=== PATIENT | male | born 1930 | race Caucasian/White ===

== ENCOUNTER 2017-06-20 14:49 | Inpatient (IN) | payer OTHER ==
[~2017-06-20] VITALS: Ht 175.3 cm; Wt 98.4 kg
--- NOTE | ~2017-06-20 | HC ---
[facility] [place] [address] CONSULTATION Name: ROBERT BOSCH Room #: 419-P ADM IN M.R.#: [id number] Admission: 06/20/17 Attend Phys: Levar Villarreal Discharge: Date of : 30 Report #: [id number] THIS REPORT FOR: //name// CC: Levar Paulino DATE OF SERVICE: 06/21/2017 HISTORY OF PRESENT ILLNESS: This gentleman was admitted because of concerns about hematuria. Specifically, he was having bloody urine in his brief. So, he was transferred from [facility] and he had been admitted there after concerns that he was trying to poison himself. He has had significant adjustment issues in the transition to the assisted living level of care. He minimizes some of this now and seems to endorse that he is going to be able to go back home. In fact he notes "my car is outside." He is oriented to person and time. He has some difficulty completely understanding the situation. He believes the reason he is here with respect to brain surgery and while there is history of such intervention, it is several decades in the past. PAST PSYCHIATRIC HISTORY: It appears he has underlying dementia. There has been recent difficulty adjusting to the new least restrictive level of care with thoughts of suicide. PAST MEDICAL HISTORY: Hematuria, obstructive sleep apnea, diabetes, dementia, hypertension. SOCIAL HISTORY: He is a retired elizabeth. He is also a of the [employer]. There are no active substance abuse issues. He does have a healthcare power of solution design engineer. ALLERGIES: Include IODINE, LOVASTATIN, FLUOROURACIL, SIMVASTATIN, METOPROLOL, AMLODIPINE. CURRENT MEDICATIONS: Gabapentin 300 at bedtime, lisinopril 20 daily, Depakote 125 three times daily, trazodone 100 at bedtime. LABORATORY DATA: Chemistry: Sodium 143, potassium 142. BUN 20, creatinine 1.4, glucose 117. Valproic acid level is pending. MENTAL STATUS EXAM: male, mesomorphic build, slightly depressed, restricted affect. Speech is normal, rate and rhythm. He is articulate. No suicidal or homicidal ideations verbalized. No hallucinations. Insight and judgment limited. DIAGNOSES: AXIS I: Dementia, not otherwise specified. Major depressive disorder, [facility] [address] [place] [address] CONSULTATION Name: ROBERT BOSCH Room #: 419-P ADM IN M.R.#: [id number] Admission: 06/20/17 Attend Phys: Levar Villarreal Discharge: Date of : 30 Report #: [id number] recurrent, moderate. AXIS II: Deferred. AXIS III: See past medical history. AXIS IV: Severe. AXIS V: 30. RECOMMENDATIONS: The patient was only at [facility] for a couple of days and I do not feel that that was long enough to mitigate the concerns about increasing depression, hopelessness, helplessness accompanied by suicidal ideation. I am unable to elicit from him at this time how much of a history of depression he truly suffers from if any and to what extent this is playing a role than a decreased ability to compensate for situational stressors due to dementia. Certainly relocation to a more restricted level of care such as assisted living can be a stressor. I do recommend activation of the healthcare power of solution design engineer and his inability to recall the reasons for current hospital stay and belief that his car is still here further punctuates these deficits. We will probably need to return to some sort of combination of Aricept and Namenda. <ELECTRONICALLY SIGNED> By: Tavo Osei MD 06/22/17 1402 1520 193 Tavo Osei MD /nt
--- NOTE | ~2017-06-20 | HC ---
[facility] [place] [address] CONSULTATION Name: ROBERT BOSCH Room #: 419-P ADM IN M.R.#: [id number] Admission: 06/20/17 Attend Phys: Levar Villarreal Discharge: Date of : 30 Report #: [id number] THIS REPORT FOR: //name// CC: Levar Paulino HISTORY OF PRESENT ILLNESS: The patient is seen at the request of Dr. Paulino regarding thrombocytopenia. He was recently transferred from [facility] in [place], [place] with ongoing hematuria and need for further urologic consultation as this has not resolved with irrigation. He is confused and according to his daughter that I spoke to on the telephone, has dementia and is an unreliable historian. She states that he has been followed by Dr. Abimael Hussein through the [facility] for some 15-20 years for thrombocytopenia and underwent a previous bone marrow aspiration and biopsy. He states that this has never required treatment nor was a definitive diagnosis ever made as to the etiology of his cytopenia. His platelet count in [place] was in the 80,000 range and has remained so here at [facility]. He does have bruising on his arms, but no free bleeding from penis or venipuncture site. PAST MEDICAL HISTORY: Significant for obstructive sleep apnea, type 2 diabetes, hypertension and prior history of brain tumor removed some 30-40 years ago. SOCIAL HISTORY: He is and had been recently transferred to an assisted living facility at the [facility] where he threatened to commit suicide. SOCIAL HISTORY: He is and retired elizabeth. He denies alcohol or drug use. FAMILY HISTORY: Not contributory. HOME MEDICATIONS: As recorded. ALLERGIES: TO AMLODIPINE, 5-FU, IODINE, LOVASTATIN, METOPROLOL, SIMVASTATIN, AND ROSUVASTATIN. REVIEW OF SYSTEMS: Unreliable due to his confusion. PHYSICAL EXAMINATION: GENERAL: Shows elderly white male. He is alert and responsive, but not accurate. HEENT: Shows he is normocephalic. NECK: Supple. CHEST: Chest is clear. [facility] [address] [place] [address] CONSULTATION Name: ROBERT BOSCH Room #: 419-P [facility] IN M.R.#: [id number] Admission: 06/20/17 Attend Phys: Levar Villarreal Discharge: Date of : 30 Report #: [id number] CARDIOVASCULAR: Normal S1, S2. ABDOMEN: Failed to reveal a palpable or percussible spleen. NEUROLOGIC: No focal localizing signs. PSYCHIATRIC: Confused. LYMPHATICS: Revealed no palpable adenopathy. SKIN: Shows scattered bruising. LABORATORY STUDIES: At [facility] showed normal PT, PTT. ASSESSMENT: Chronic thrombocytopenia. PLAN: I am trying to obtain the records from the [facility] as to his ongoing thrombocytopenia and prior bone marrow/diagnosis. Since platelets appear stable unless his bleeding worsens or bleeding time is abnormal, this 80,000 range is actually acceptable and he does not have evidence of DIC. I have ordered fibrinogen and LDH which are pending at the time of this dictation regarding possible TTP, but again, he has no leukocytosis and is not anemic, so I am in doubt as to that possibility. Thanks for allowing us to see him in consultation and allowing us to participate in his care. <ELECTRONICALLY SIGNED> By: Gaetano Mercado MD 06/22/17 0758 1313 1439 Lucrecia Osorio MD /nt
--- NOTE | ~2017-06-20 | EKG ---
[address] [address] ELECTROCARDIOGRAM REPORT Name: ROBERT BOSCH Room #: 419-P ADM IN M.R.#: [id number] Admission: 06/20/17 Attend Phys: Levar Villarreal Discharge: Date of : 30 Report #: [id number] THIS REPORT FOR: //name// [facility] Test Date: 2017-06-23 Test Time: 16:57:49 Pat Name: ROBERT BOSCH Department: Room: 419 P Gender: M Budget Analyst: Rao BRAY : 1930 Requested By: Mohini Solares Order Number: [id number] MD: Yuri Angeles Measurements Intervals [place] Rate: 54 P: 77 SD: 176 QRS: 50 QRSD: 111 T: 55 QT: 432 QTc: 410 Interpretive Statements Sinus rhythm Borderline low voltage, extremity leads No previous ECG available for comparison Electronically Signed On 06-23-2017 22:30:28 LIMNOLOGIST by Yuri Angeles [email or web address] <ELECTRONICALLY SIGNED> By: Yuri Angeles MD 06/23/172229 1657 MD AGATHA Doll
--- NOTE | ~2017-06-20 | H ---
[facility] [place] [address] HISTORY AND PHYSICAL Name: ROBERT BOSCH Room #: 419-P ADM IN M.R.#: [id number] Admission: 06/20/17 Attend Phys: Levar Villarreal Discharge: Date of : 30 Report #: [id number] THIS REPORT FOR: //name// CC: Levar Paulino DATE OF SERVICE: 06/20/2017 History was primarily obtained from [place] [facility] The patient is very confused and oriented to self only. HISTORY OF PRESENT ILLNESS: The patient is an 86-year-old male with history of sleep apnea, type 2 diabetes, neurocognitive impairment, recently admitted at the [facility], was transferred to the ICU at [place] today for hematuria. The patient was apparently found to have bloody urine in his brief. Subsequently straight cath was performed and he had 800 mL of bloody urine. The patient was subsequently admitted to the ICU and monitored. He had a CT of the abdomen and pelvis done which showed mild to moderate left hydronephrosis with hydroureter. There are bilateral renal hypodensities. The patient has history of leukopenia and thrombocytopenia. He has history of BPH and elevated PSA in the past. The patient apparently had become quite violent at the custodial and threatened to kill himself and was admitted at the [facility]. PAST MEDICAL HISTORY: Significant for pancytopenia, type 2 diabetes, hypertension, obstructive sleep apnea for which he uses CPAP, history of BPH. ALLERGIES: Allergic to AMLODIPINE, 5-FLUOROURACIL, IODINE, LOVASTATIN, METOPROLOL, ROSUVASTATIN and SIMVASTATIN. HOME MEDICATIONS: Reviewed. The patient is on Tylenol, Depakote 100 mg 3 times a day, Aricept, Neurontin, glipizide, hydroxyzine, lisinopril, magnesium oxide, Zofran and trazodone. SOCIAL HISTORY: He is a retired elizabeth. No smoking or alcohol abuse. He is a of the [place] [employer]. PAST SURGICAL HISTORY: Significant for brain tumor removal 30-40 years ago, repair of his third finger. REVIEW OF SYSTEMS: Unable to obtain because of the confusion. FAMILY HISTORY: Unable to obtain. PHYSICAL EXAMINATION: VITAL SIGNS: Reviewed. [address] [address] HISTORY AND PHYSICAL Name: ROBERT BOSCH Room #: 419-P [facility] IN M.R.#: [id number] Admission: 06/20/17 Attend Phys: Levar Villarreal Discharge: Date of : 30 Report #: [id number] GENERAL: The patient is awake, is able to follow simple commands, but he is oriented only to self. He follows simple command. He gets agitated at times. EYES: Pupils equal, reactive to light. THROAT: He has a dry oral mucosa. NECK: Supple, no JVD, no bruit, no lymphadenopathy. CARDIOVASCULAR: S1, S2, negative S3, no murmur. CHEST: Bilateral air entry present. Clear on auscultation. ABDOMEN: Soft, bowel sounds present, no mass, no organomegaly, no tenderness. PERIPHERY: No pedal edema. No calf tenderness. Dorsalis pedis 1+. NEUROLOGICAL: The patient is able to move all 4 extremities, able to follow simple commands. LABORATORY DATA: Reviewed. His CT of the abdomen and pelvis showed mild to moderate left hydronephrosis and hydroureter, no ureterolithiasis. Left side hydronephrosis, hydroureter could be secondary to distal obstruction, bilateral renal hypodensities and diverticulosis. His platelets at [place] was 80. White count is 3.5, hemoglobin is 12.6, PTT is 28 seconds. PT is 11 seconds. Sodium is 147, BUN and creatinine is 17 and 1.3. CPK was 844, troponin 0.341. AST and ALT are within normal limit. UA revealed bloody with more than 100 protein, large nitrites, large blood, WBC 1-4. Lactic acid was 1. ASSESSMENT: 1. Gross hematuria. CT scan shows left hydronephrosis and hydroureter, possible distal ureteral obstruction, rule out malignancy. The patient will be continued on bladder medication. We will obtain CBC and serial hemoglobin. Urologist would be consulted. We will continue with continuous bladder irrigation. 2. Leukopenia and thrombocytopenia. Etiology unknown. 3. We will consult faucets assembler. 4. Deep venous thrombosis prophylaxis, on SCD on the leg. 5. Neurocognitive impairment with previous history of suicidal ideation. The patient will be continued on his present home medication including Depakote 6. Hypertension, which will be monitored. 7. Type 2 diabetes. We will continue with his present home medication. We will place him on sliding scale insulin. 8. History of sleep apnea, uses CPAP at night. 9. History of depression. We will also have a 1:1 sitter at bedside. Treatment plan has been explained to the nursing staff in detail. <ELECTRONICALLY SIGNED> By: Evan Paulino MD 06/22/17 0857 1655 1740 Evan Paulino MD /nt
[2017-06-20 16:00] VITALS: BP 154/70
[2017-06-20] MEDS ORDERED: DEPAKOTE SPRIN125 MG PO (17:06)
[2017-06-20] MEDS ORDERED: ARICEPT 5 MG TAB5 MG PO (17:06)
[2017-06-20] MEDS ORDERED: GLUCOTROL5 MG PO (17:07)
[2017-06-20] MEDS ORDERED: GABAPENTIN600 M1 PO (17:07)
[2017-06-20] MEDS ORDERED: HYDROXYZINE HCL25 M1 PO (17:08)
[2017-06-20 17:09] LABS: HEMATOCRIT 41.8 % (42.0-52.0); HEMOGLOBIN 13.4 gm/dL (14.0-18.0); MCH 31.3 pg (26.0-34.0); MCHC 32.2 g/dL (28.0-37.0); MCV 97.3 fL (80.0-100.0); RBC 4.29 mil/uL (4.50-6.00); WBC 3.7 thou/uL (4.0-11.0)
[2017-06-20] MEDS ORDERED: MILK OF MA2400 MG/10 PO (17:09)
[2017-06-20] MEDS ORDERED: LISINOPRIL20 MG PO (17:09)
[2017-06-20] MEDS ORDERED: ONDANSETRON HCL4 M2 PO (17:10)
[2017-06-20] MEDS ORDERED: ZYPREXA 5 MG TAB5 M2 PO (17:10)
[2017-06-20] MEDS ORDERED: TRAZODONE HCL100 MG PO (17:11)
[2017-06-20] MEDS ORDERED: TYLENOL325 MG PO (17:11)
[2017-06-20 17:13] LABS: MANUAL DIFF YES; PLATELET COUNT 85 thou/uL (150-400)
[2017-06-20 17:21] LABS: CALCIUM 8.9 mg/dL (8.5-10.1); CREATININE 1.3 mg/dL (0.7-1.3); POTASSIUM 4.1 mmol/L (3.5-5.1)
[2017-06-20 17:24] LABS: APTT 29.6 Seconds (24.5-32.8); INR 1.1; PROTIME 10.9 Seconds (9.3-11.4)
[2017-06-20 17:27] LABS: ALBUMIN 2.8 g/dL (3.4-5.0); TOTAL BILIRUBIN 0.4 mg/dL (<0.1-1.0); TOTAL PROTEIN 5.9 g/dL (6.4-8.2)
[2017-06-20 18:05] LABS: ABSOLUTE NEUTROPHILS 2.1 thou/uL (1.4-8.2); TOTAL CELL COUNT 100
[2017-06-20 19:33] VITALS: BP 144/59
[2017-06-20 20:37] LABS: URINE BILIRUBIN NEGATIVE (Negative); URINE BLOOD 3+ (Negative); URINE GLUCOSE-RANDOM* NEGATIVE (Negative); URINE KETONES NEGATIVE (Negative); URINE LEUKOCYTES-REFLEX NEGATIVE (Negative); URINE PROTEIN (DIPSTICK) NEGATIVE (Negative); URINE SPECIFIC GRAVITY <= 1.005 (1.005-1.035); URINE UROBILINOGEN 0.2 E.U./dl (0.2-1.0)
[2017-06-20 20:38] LABS: URINE COLOR PINKISH RED
[2017-06-20 20:43] LABS: CASTS None Seen /LPF (None Seen); CRYSTALS None Seen /LPF (None Seen); SQUAMOUS None Seen /LPF (0-3); URINE RBC >20 Many /HPF (0-2); URINE WBC-REFLEX 0-5 Rare /HPF (0-5)
[2017-06-20 21:05] LABS: ABSOLUTE RETIC COUNT 0.0631 10^6/uL; OBSERVED RETIC COUNT 1.48 % (0.6-2.6)
[2017-06-21 03:08] VITALS: BP 156/52
[2017-06-21 04:09] LABS: HEMATOCRIT 40.3 % (42.0-52.0); MCH 31.4 pg (26.0-34.0); MCHC 32.3 g/dL (28.0-37.0); MCV 97.3 fL (80.0-100.0); PLATELET COUNT 82 thou/uL (150-400); RBC 4.14 mil/uL (4.50-6.00); RDW 13.4 % (10.5-14.5); WBC 4.4 thou/uL (4.0-11.0)
[2017-06-21 04:10] LABS: MANUAL DIFF YES
[2017-06-21 04:22] LABS: CALCIUM 8.8 mg/dL (8.5-10.1); CREATININE 1.4 mg/dL (0.7-1.3); MAGNESIUM 1.9 mg/dL (1.8-2.4); POTASSIUM 4.2 mmol/L (3.5-5.1)
[2017-06-21 04:56] LABS: ABSOLUTE NEUTROPHILS 3.2 thou/uL (1.4-8.2); ATYPICAL LYMPHS 6 %; TOTAL CELL COUNT 100
[2017-06-21 08:00] VITALS: BP 158/59
[2017-06-21 16:00] VITALS: BP 154/56
[2017-06-21 16:15] LABS: AMMONIA 15 umol/L (11-32)
[2017-06-21 16:20] LABS: % SATURATION 17 % (20-39); IRON 23 ug/dL (65-175); TIBC 138 ug/dL (250-450); UIBC 115 ug/dL
[2017-06-21 16:37] LABS: VALPROIC ACID (DEPAKENE)* 21 ug/mL (50-100)
[2017-06-21 16:51] LABS: FERRITIN 157 ng/mL (26-388)
[2017-06-21 20:00] VITALS: BP 139/59
[2017-06-22 05:52] VITALS: BP 139/59
[2017-06-22 06:40] LABS: HEMATOCRIT 38.7 % (42.0-52.0); HEMOGLOBIN 12.6 gm/dL (14.0-18.0); MCH 31.7 pg (26.0-34.0); MCHC 32.4 g/dL (28.0-37.0); MCV 97.9 fL (80.0-100.0); RBC 3.96 mil/uL (4.50-6.00); RDW 13.7 % (10.5-14.5); WBC 3.8 thou/uL (4.0-11.0)
[2017-06-22 06:49] LABS: APTT 30.4 Seconds (24.5-32.8); FIBRINOGEN 415.2 mg/dL (210-360); INR 1.1
[2017-06-22 07:37] VITALS: BP 143/58
[2017-06-22 11:29] VITALS: BP 123/51
[2017-06-22 15:25] VITALS: BP 120/52
[2017-06-22 19:40] VITALS: BP 148/56
[2017-06-23 04:00] VITALS: BP 135/75
[2017-06-23 06:48] LABS: HEMOGLOBIN 12.5 gm/dL (14.0-18.0); MCV 96.5 fL (80.0-100.0); WBC 4.2 thou/uL (4.0-11.0)
[2017-06-23 06:51] LABS: HEMATOCRIT 38.2 % (42.0-52.0); MCH 31.7 pg (26.0-34.0); MCHC 32.8 g/dL (28.0-37.0); RBC 3.96 mil/uL (4.50-6.00); RDW 13.6 % (10.5-14.5)
[2017-06-23 06:53] LABS: MANUAL DIFF YES
[2017-06-23 07:24] LABS: ABSOLUTE NEUTROPHILS 2.8 thou/uL (1.4-8.2); PLATELET COUNT 78 thou/uL (150-400); PLATELET ESTIMATE DECREASED; TOTAL CELL COUNT 100
[2017-06-23 07:53] VITALS: BP 145/50
[2017-06-23 16:45] VITALS: BP 149/63
[2017-06-23 20:00] VITALS: BP 155/71
[2017-06-24 06:00] VITALS: BP 142/55
[2017-06-24 07:30] VITALS: BP 150/65
[2017-06-24 15:50] VITALS: BP 134/49
[2017-06-24 19:05] VITALS: BP 129/55
[2017-06-25 06:40] LABS: HEMATOCRIT 38.2 % (42.0-52.0); HEMOGLOBIN 12.6 gm/dL (14.0-18.0); MCH 31.7 pg (26.0-34.0); MCHC 32.9 g/dL (28.0-37.0); MCV 96.5 fL (80.0-100.0); PLATELET COUNT 89 thou/uL (150-400); RBC 3.96 mil/uL (4.50-6.00); RDW 13.3 % (10.5-14.5); WBC 3.5 thou/uL (4.0-11.0)
[2017-06-25 06:46] LABS: MANUAL DIFF YES
[2017-06-25 06:53] LABS: CALCIUM 8.8 mg/dL (8.5-10.1); CREATININE 1.5 mg/dL (0.7-1.3); POTASSIUM 4.4 mmol/L (3.5-5.1)
[2017-06-25 07:29] VITALS: BP 140/72
[2017-06-25 10:05] LABS: ABSOLUTE NEUTROPHILS 2.2 thou/uL (1.4-8.2); TOTAL CELL COUNT 100
[2017-06-25 10:06] LABS: ANISOCYTOSIS SLIGHT
[2017-06-25 15:20] VITALS: BP 130/61
[2017-06-25 19:07] VITALS: BP 130/52
[2017-06-26 07:35] VITALS: BP 140/67
[2017-06-26 07:43] LABS: CALCIUM 9.1 mg/dL (8.5-10.1); CREATININE 1.3 mg/dL (0.7-1.3); POTASSIUM 4.5 mmol/L (3.5-5.1)
[2017-06-26 16:40] VITALS: BP 142/58
[2017-06-26 20:00] VITALS: BP 146/63
[2017-06-27 04:00] VITALS: BP 147/69
[2017-06-27 06:20] LABS: CALCIUM 9.1 mg/dL (8.5-10.1); CREATININE 1.4 mg/dL (0.7-1.3)
[2017-06-27 06:22] LABS: HEMOGLOBIN 13.1 gm/dL (14.0-18.0); MANUAL DIFF YES; MCH 31.6 pg (26.0-34.0); MCHC 32.7 g/dL (28.0-37.0); MCV 96.6 fL (80.0-100.0); PLATELET COUNT 100 thou/uL (150-400); RBC 4.14 mil/uL (4.50-6.00); RDW 13.1 % (10.5-14.5); WBC 5.1 thou/uL (4.0-11.0)
[2017-06-27 07:20] VITALS: BP 138/77
[2017-06-27 08:47] LABS: ABSOLUTE NEUTROPHILS 3.1 thou/uL (1.4-8.2); PLATELET ESTIMATE NORMAL; TOTAL CELL COUNT 100
[2017-06-27 14:55] VITALS: BP 132/59
[2017-06-27 20:00] VITALS: BP 130/59
[2017-06-28 04:36] VITALS: BP 156/70
[2017-06-28 04:39] LABS: HEMATOCRIT 39.6 % (42.0-52.0); MCH 31.7 pg (26.0-34.0); MCHC 32.9 g/dL (28.0-37.0); MCV 96.4 fL (80.0-100.0); PLATELET COUNT 103 thou/uL (150-400); RDW 13.4 % (10.5-14.5)
[2017-06-28 04:42] LABS: MANUAL DIFF YES
[2017-06-28 04:49] LABS: CREATININE 1.5 mg/dL (0.7-1.3); POTASSIUM 4.2 mmol/L (3.5-5.1)
[2017-06-28 06:48] LABS: ABSOLUTE NEUTROPHILS 1.8 thou/uL (1.4-8.2); HYPOCHROMASIA SLIGHT; TOTAL CELL COUNT 100
[2017-06-28 07:30] VITALS: BP 116/60
[2017-06-28 12:45] VITALS: BP 104/65
[2017-06-28 20:00] VITALS: BP 155/60
[2017-06-29] VITALS (7 sets, daily range): BP systolic 127–146; BP diastolic 53–69
[2017-06-29 06:27] LABS: HEMATOCRIT 40.6 % (42.0-52.0); HEMOGLOBIN 13.3 gm/dL (14.0-18.0); MCH 31.5 pg (26.0-34.0); MCHC 32.7 g/dL (28.0-37.0); MCV 96.5 fL (80.0-100.0); PLATELET COUNT 105 thou/uL (150-400); RBC 4.21 mil/uL (4.50-6.00); RDW 13.5 % (10.5-14.5)
[2017-06-29 06:28] LABS: MANUAL DIFF YES
[2017-06-29 06:47] LABS: CALCIUM 8.8 mg/dL (8.5-10.1); CREATININE 1.4 mg/dL (0.7-1.3); POTASSIUM 3.9 mmol/L (3.5-5.1)
[2017-06-29 08:03] LABS: ABSOLUTE NEUTROPHILS 2.7 thou/uL (1.4-8.2); TOTAL CELL COUNT 100
[2017-06-29 08:04] LABS: ANISOCYTOSIS SLIGHT
[2017-06-30 03:39] VITALS: BP 127/57
[2017-06-30 07:24] VITALS: BP 141/69
== END 2017-06-30 13:25 | disposition hospice, inpatient (51) | DRG 693 ==
LOC: 4E 14:49
PROVIDERS: Family Medicine; Internal Medicine; Internal Medicine Endocrinology, Diabetes & Metabolism; Internal Medicine Hematology & Oncology; Physician Assistant; Registered Nurse
DX: N13.30 Unspecified hydronephrosis (principal); E43 Unspecified severe protein-calorie malnutrition; R45.851 Suicidal ideations; F03.91 Unspecified dementia, unspecified severity, with behavioral disturbance; I12.0 Hypertensive chronic kidney disease with stage 5 chronic kidney disease or end stage renal disease; N13.4 Hydroureter; R31.0 Gross hematuria; G47.33 Obstructive sleep apnea (adult) (pediatric); D69.6 Thrombocytopenia, unspecified; F32.9 Major depressive disorder, single episode, unspecified; N40.0 Benign prostatic hyperplasia without lower urinary tract symptoms; D72.819 Decreased white blood cell count, unspecified; E11.22 Type 2 diabetes mellitus with diabetic chronic kidney disease; F29 Unspecified psychosis not due to a substance or known physiological condition; E87.5 Hyperkalemia; D50.9 Iron deficiency anemia, unspecified; N18.3 Chronic kidney disease, stage 3 (moderate); I25.10 Atherosclerotic heart disease of native coronary artery without angina pectoris; I95.1 Orthostatic hypotension; R41.9 Unspecified symptoms and signs involving cognitive functions and awareness; H54.7 Unspecified visual loss; Z88.8 Allergy status to other drugs, medicaments and biological substances; Z91.041 Radiographic dye allergy status; Z79.899 Other long term (current) drug therapy; Z68.32 Body mass index [BMI] 32.0-32.9, adult
CPT/HCPCS: 10183; 10783